=== PATIENT | female | born 1995 | race African-American/Black ===

== ENCOUNTER 2023-06-30 14:16 | Outpatient (CLI) | payer OTHER, SELFPAY ==
--- NOTE | ~2023-06-30 | US_ITS ---
EXAMINATION: US pelvic complete w TV DATE: 06/30/2023 14:51 INDICATION: Infertility. TECHNIQUE: Multiple transabdominal and transvaginal sonographic images of the pelvis were obtained. COMPARISON: None. FINDINGS: TRANSABDOMINAL ULTRASOUND: The uterus measures 7.1 x 4.0 x 4.0 cm. There is no free fluid in the pelvis. TRANSVAGINAL ULTRASOUND: The endometrial complex measures 10 mm in thickness. The right ovary measures 3.3 x 2.3 x 2.0 cm. The left ovary measures 2.5 x 2.1 x 1.7 cm. There is normal vascular flow in the ovaries. IMPRESSION: 1. Normal pelvis. Reviewed, dictated and finalized at location A. ET SLITTER IMPRESSION: 1. Normal pelvis.
== END 2023-06-30 14:17 | disposition home or self-care (01) ==
LOC: CHSIMG 14:20
PROVIDERS: PCP Registered Nurse; Visit Provider Registered Nurse
DX: N97.9 Female infertility, unspecified (principal)
CPT/HCPCS: 76830; 76856